=== PATIENT | female | born 1970 | race African-American/Black ===

== ENCOUNTER 2019-10-31 18:35 | Emergency (ER) | payer MEDICAID ==
[~2019-10-31] VITALS: Ht 162.6 cm; Wt 85.0 kg
[~2019-10-31 18:35] MED LIST: LEVO500T2 PO; METF-414 PO; METR250T PO; MULT-1146 PO; NORG1TAB5 PO; SPIR50TA5 PO
[2019-10-31 20:53] VITALS: BP 135/78
== END 2019-10-31 20:53 | disposition home or self-care (01) ==
LOC: ER 18:35
DX: T20.00XA Burn of unspecified degree of head, face, and neck, unspecified site, initial encounter (principal); W90.2XXA Exposure to laser radiation, initial encounter; Y93.89 Activity, other specified; Y92.9 Unspecified place or not applicable; Z88.8 Allergy status to other drugs, medicaments and biological substances; Z90.49 Acquired absence of other specified parts of digestive tract; Z98.890 Other specified postprocedural states
CPT/HCPCS: 99281

== ENCOUNTER 2020-02-29 10:18 | Emergency (ER) | payer MEDICAID ==
[~2020-02-29] VITALS: Ht 162.6 cm; Wt 112.0 kg
[2020-02-29 10:35] VITALS: BP 102/62
[2020-02-29] MEDS ORDERED: IBUPROFEN 600MG TABLET PO ONE (10:45)
[2020-02-29] MEDS ORDERED: HYDROXYZINE 25MG TABLET PO ONE (10:45)
== END 2020-02-29 11:33 | disposition home or self-care (01) ==
LOC: ER 10:18
DX: S60.562A Insect bite (nonvenomous) of left hand, initial encounter (principal); Z88.3 Allergy status to other anti-infective agents; Z79.899 Other long term (current) drug therapy; W57.XXXA Bitten or stung by nonvenomous insect and other nonvenomous arthropods, initial encounter; Y93.9 Activity, unspecified; Y92.89 Other specified places as the place of occurrence of the external cause; Y99.8 Other external cause status
CPT/HCPCS: 99283

== ENCOUNTER → 2024-08-27 | Emergency (ER) | payer MEDICAID | LOC: ER 19:39 | DX: R68.89 Other general symptoms and signs (principal); Z53.21 Procedure and treatment not carried out due to patient leaving prior to being seen by health care provider ==